=== PATIENT | female | born 2000 | race Caucasian/White ===

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

== ENCOUNTER 2022-08-01 16:26 | Emergency (ER) | payer OTHER ==
[~2022-08-01] VITALS: Ht 152.4 cm; Wt 54.4 kg
== END 2022-08-01 18:39 | disposition home or self-care (01) ==
LOC: ED 16:26
DX: M75.102 Unspecified rotator cuff tear or rupture of left shoulder, not specified as traumatic (principal)

== ENCOUNTER 2022-10-26 11:11 | Emergency (ER) | payer OTHER ==
[~2022-10-26] VITALS: Ht 152.4 cm; Wt 45.4 kg
== END 2022-10-26 14:44 | disposition left against medical advice (07) ==
LOC: ED 11:11
DX: K62.5 Hemorrhage of anus and rectum (principal)

== ENCOUNTER 2024-09-06 15:40 | Emergency (ER) | payer BC ==
[~2024-09-06] VITALS: Ht 152.4 cm; Wt 42.6 kg
== END 2024-09-06 16:21 | disposition home or self-care (01) ==
LOC: ED 15:40
DX: S61.412A Laceration without foreign body of left hand, initial encounter (principal); W26.0XXA Contact with knife, initial encounter; Y93.89 Activity, other specified; Y92.89 Other specified places as the place of occurrence of the external cause; Y99.8 Other external cause status